=== PATIENT | male | born 1990 | race Caucasian/White ===

== ENCOUNTER 2023-02-19 20:39 | Emergency (ER) | payer MEDICAID ==
[~2023-02-19] VITALS: Ht 182.9 cm; Wt 82.6 kg
[2023-02-19 20:41] VITALS: BP 109/69
--- NOTE | 2023-02-19 20:45 | NUR ---
patient to bed 2
--- NOTE | 2023-02-19 20:52 | NUR ---
STAT EKG at bedside.
[2023-02-19 21:28] LABS: BASOPHILS # (AUTO) 0.1 K/uL (0.00-0.22); EOSINOPHILS # (AUTO) 0.2 K/uL (0-0.4); EOSINOPHILS % (AUTO) 1.8 % (0.0-4.0); HEMATOCRIT 46.8 % (36-52); HEMOGLOBIN 15.5 g/dL (12.0-18.0); LYMPHOCYTES # (AUTO) 2.2 K/uL (2.0-11.5); LYMPHOCYTES % (AUTO) 25.7 % (20.5-51.1); MEAN CORPUSCULAR HEMOGLOBIN 26 pg (27-31); MEAN CORPUSCULAR HGB CONC 33 g/dL (33-37); MEAN CORPUSCULAR VOLUME 77.5 fL (80-94); MONOCYTES # (AUTO) 0.5 K/uL (0.8-1.0); NEUTROPHILS # (AUTO) 5.7 K/uL (1.8-7.7); NEUTROPHILS % (AUTO) 65.5 % (42.2-75.2); PLATELET COUNT (AUTO) 406 K/uL (140-450); RED BLOOD CELL COUNT(AUTO) 6.04 MIL/uL (4.20-6.10); RED CELL DISTRIBUTION WIDTH 14.9 % (11.6-13.7); WHITE BLOOD COUNT (AUTO) 8.7 K/uL (4.8-10.8)
[2023-02-19 21:43] LABS: ALBUMIN 3.5 g/dL (3.4-5.0); CARBON DIOXIDE 28.3 mmol/L (21-32); CREATININE 1.1 mg/dL (0.6-1.3); POTASSIUM 4.3 mmol/L (3.5-5.1); TOTAL BILIRUBIN 0.2 mg/dL (0.0-1.0)
[2023-02-19 21:45] LABS: MAGNESIUM 1.7 mg/dL (1.8-2.4)
[2023-02-19] MEDS ORDERED: MAG SULF 2000 MG/WATER PREMIX 50 ML IV ONE (22:05)
--- NOTE | 2023-02-19 23:46 | NUR ---
Dr. Lorenzana explained results and treatment plans.
[2023-02-20 00:30] VITALS: BP 110/58
--- NOTE | 2023-02-20 00:30 | NUR ---
Patient discharged. Written and verbal after care instructions given and explained. Patient verbalized understanding. Ambulatory with steady gait. ID band removed. All questions addressed prior to discharge. Advised to follow up with PMD.
== END 2023-02-20 00:30 | disposition home or self-care (01) ==
LOC: MED 20:39
DX: I45.6 Pre-excitation syndrome (principal); R00.0 Tachycardia, unspecified
CPT/HCPCS: 36415; 71045; 80053; 83735; 83880; 84100; 84484; 85025; 93005; 96365; 99285; J3475; Q0092